=== PATIENT | male | born 1995 | race Caucasian/White ===

== ENCOUNTER 2017-02-16 16:44 | Emergency (ER) | payer OTHER ==
[~2017-02-16] VITALS: Ht 165.1 cm; Wt 74.8 kg
[2017-02-16] MEDS ORDERED: NORCO 5-325 TA1 EACH PO (18:20)
[2017-02-16 18:31] VITALS: BP 113/68
== END 2017-02-16 18:32 | disposition home or self-care (01) ==
LOC: M.ERS 16:44
DX: S82.832A Other fracture of upper and lower end of left fibula, initial encounter for closed fracture (principal); W01.0XXA Fall on same level from slipping, tripping and stumbling without subsequent striking against object, initial encounter; Y93.89 Activity, other specified; Y92.89 Other specified places as the place of occurrence of the external cause; Y99.8 Other external cause status